=== PATIENT | male | born 1960 | race Caucasian/White ===

== ENCOUNTER 2024-03-13 12:38 | Emergency (ER) | payer OTHER, SELFPAY ==
[2024-03-13 12:46] VITALS: BP 168/103
--- NOTE | 2024-03-13 12:53 | ED.GENMED ---
ED Provider Triage
<CAMPBELL Bowens - Last Filed: 03/13/24 12:58>
-
Patient seen by provider in Triage?: Seen in Triage
Attestation: A medical screening examination has been initiated by a qualified medical provider. Based on the assessment performed at this time, it has been determined that an emergent medical condition may exist and the patient has been informed
that further medical evaluation and possible additional diagnostic testing may be needed.
HPI: 64 yr old male w/ hx of bipolar disorder has not been on meds for at least 6 mos ago. Here to get help getting a therapist/psychiatrist.
pt does not have a current therapist/psychiatrist.
pt does not have a pcp.
He does not feel suicidal homicidal but does feel that he needs to be back on medication for bipolar disorder.
Pt has no physical complaints. Pt is a diabetic but has not been taking his metformin as prescribed.
GENERAL: Alert , in no apparent distress
EYE: No visual abnormalities.
NECK: Trachea midline
ENT: No visible abnormalities.
LUNGS: No acute respiratory distress
NEUROLOGICAL: Alert and oriented
SKIN: Skin intact. No visible changes.
MUSCULOSKELETAL: Moving extremities normally
PSYCH: Normal and appropriate interaction.
This is a medical evaluation conducted in person to initiate diagnostic evaluation and provide initial therapeutics. Please see further documentation by the treating clinician.
History of Present Illness
<CAMPBELL Bowens - Last Filed: 03/13/24 12:58>
General
Chief Complaint: Crisis Evaluation
Time Seen by Provider: 03/13/24 13:42
<Guillermo Cantor DO - Last Filed: 03/13/24 14:13>
General
Source: patient
Exam Limitations: none
Nursing documentation reviewed up to this point in time: agreed with
History of Present Illness
History of Present Illness:
64 yo male presents Emergency Department due to being unable to get an appointment to refill his medications. He was taking Wellbutrin and Abilify. He states his blood sugar has been elevated as well. He has not been taking his metformin as
prescribed. He denies any chest pain or shortness of breath. He denies SI or HI.
Past History
<RADHA BowensNP - Last Filed: 03/13/24 12:58>
Past History
ED Past Medical History: None
ED Past Surgical History: None
Social History
Tobacco: Non-smoker
<Guillermo Cantor, DO - Last Filed: 03/13/24 14:13>
Past History
ED Past Medical History: HTN, NIDDM and Psychiatric (Bipolar)
Social History
Alcohol: Former
Drug: None
Review of Systems
<Guillermo Cantor, DO - Last Filed: 03/13/24 14:13>
Review of Systems
Allergies reviewed?: Yes
All Other Systems: Not applicable
Constitutional: Reports no symptoms
EENT: Reports no symptoms
Respiratory: Reports no symptoms
Cardiac: Reports no symptoms
ABD/GI: Reports no symptoms
: Reports no symptoms
Musculoskeletal: Reports no symptoms
Skin: Reports no symptoms
Neurological: Reports no symptoms
Endocrine: Reports no symptoms
Hematologic/Lymphatic: Reports no symptoms
Psychiatric: Reports anxiety
Phy Exam
<Guillermo Cantor, DO - Last Filed: 03/13/24 14:13>
Physical Exam
Physical Exam:
Physical Exam
General: no apparent distress, not acutely ill
Neck: supple. no meningeal signs. normal posterior pharynx
Heart: s1/s2 regular rate and rhythm, no murmur. equal radial
pulses.
HEENT: Pupils equal round reactive to light, EOMI
Lungs: no acute respiratory distress. clear bilaterally
Abdomen: normal bowel sounds. not tender. no CVAT
Neuro: alert and oriented. no focal neurological deficits cranial nerves II through XII intact
Skin: no rash
Psychiatric: well kept. interactive and cooperative
Extremities: no edema. no calf tenderness. negative homans. good distal pulses
Course
<CAMPBELL Bowens - Last Filed: 03/13/24 12:58>
Orders/Labs/Results
Orders:
Orders
03/13/24 13:06
Complete Blood Count/With Diff Urgent
Comprehensive Metabolic Panel Urgent
Abnormal Lab Results
03/13/24 03/13/24
12:59 13:06
Abs Immat Gran (auto) 0.1 H 10^3/uL
(0-0.05)
Absolute Monos (auto) 0.9 H 10^3/uL
(0.1-0.6)
Immature Gran % 0.6 H %
(0-0.5)
Lymphocytes % 18.0 L %
(20.5-51.1)
Monocytes % 9.4 H %
(1.7-9.3)
Chloride 97 L mmol/L
(98-107)
Glucose 358 H mg/dl
(70-99)
POC Glucose 338 H mg/dl
(70-99)
03/13/24 13:06
03/13/24 13:06
Vital Signs
Initial and Last Documented VS:
Initial Vital Signs
Temp Pulse Resp BP Pulse Ox
98.4 F 122 18 168/103 97
03/13/24 12:46 03/13/24 12:46 03/13/24 12:46 03/13/24 12:46 03/13/24 12:46
Last Documented Vital Signs
Temp Pulse Resp BP Pulse Ox
98.4 F 122 18 168/103 97
03/13/24 12:46 03/13/24 12:46 03/13/24 12:46 03/13/24 12:46 03/13/24 12:46
<Guillremo Cantor, DO - Last Filed: 03/13/24 14:13>
Orders/Labs/Results
Orders:
Orders
03/13/24 13:06
Complete Blood Count/With Diff Urgent
Comprehensive Metabolic Panel Urgent
Abnormal Lab Results
03/13/24 03/13/24
12:59 13:06
Abs Immat Gran (auto) 0.1 H 10^3/uL
(0-0.05)
Absolute Monos (auto) 0.9 H 10^3/uL
(0.1-0.6)
Immature Gran % 0.6 H %
(0-0.5)
Lymphocytes % 18.0 L %
(20.5-51.1)
Monocytes % 9.4 H %
(1.7-9.3)
Chloride 97 L mmol/L
(98-107)
Glucose 358 H mg/dl
(70-99)
POC Glucose 338 H mg/dl
(70-99)
03/13/24 13:06
03/13/24 13:06
Vital Signs
Initial and Last Documented VS:
Initial Vital Signs
Temp Pulse Resp BP Pulse Ox
98.4 F 122 18 168/103 97
03/13/24 12:46 03/13/24 12:46 03/13/24 12:46 03/13/24 12:46 03/13/24 12:46
Last Documented Vital Signs
Temp Pulse Resp BP Pulse Ox
98.4 F 122 18 168/103 97
03/13/24 12:46 03/13/24 12:46 03/13/24 12:46 03/13/24 12:46 03/13/24 12:46
<Guillermo Cantor - Last Filed: 03/13/24 14:13>
MDM/Problems Addressed
Differential Diagnosis Includes:
hyperglycemia
MDM/Problems Addressed:
64 yo male with hyperglycemia, DM, bipolar disorder.
Chronic conditions affecting care: DM, HTN and Psychiatric illness
Acute Exacerbation and/or Progression of Chronic Illness: DM and Psychiatric illness
<Guillermo Cantor DO - Last Filed: 03/13/24 14:13>
*Pulse Oximetry
Patient hypoxic: no
*Critical Care Note
Total Time (30-74mins, 75-104mins- exclusive of procedures): Not Applicable
<Guillermo Cantor, - Last Filed: 03/13/24 14:13>
Patient Management
Social determinants of health affecting care: Living situation
Discussion with other providers: Other (crisis to see patient and give resources)
Escalation/DeEscalation of care consider admission/obs:
admit not indicated
ED Attending Note
<CAMPBELL Bowens - Last Filed: 03/13/24 12:58>
-
Portions of this chart may have been created with voice recognition software.� Occasional wrong word or��sound alike� substitutions may have occurred due to the inherent limitations of voice recognition software.
Discharge Plan
Departure
Patient Disposition: Home (Routine Discharge)
Date of Disposition: 03/13/24
Time of Disposition: 14:07
Patient Status:: Crisis
Patient with high blood pressure during this ER visit?: Yes
Condition: Good
Discharge Problem:
Hyperglycemia due to diabetes mellitus
Instructions: Bipolar disorder - Discharge instructions, Type 2 diabetes - Discharge instructions
Prescriptions:
New
aripiprazole [Abilify] 5 mg tablet
5 mg PO DAILY Qty: 30 0RF
bupropion HCl 100 mg tablet
100 mg PO DAILY Qty: 30 0RF
Interventions
Interventions:
*Risk Screen - Suicide Last Done: 03/13/24 12:50
*General Assessment Last Done: 03/13/24 12:46
*Neglect/Abuse Screening Last Done: 03/13/24 12:46
*ED COVID-19 Vaccine History Last Done: 03/13/24 12:50
Discharge Date and Time
Print Language: SAMI
[2024-03-13 13:01] LABS: Glucose - Point of Care 338 mg/dl (70-99)
[2024-03-13 13:17] LABS: % Basophils 0.9 % (0-2); % Eosinophils 1.7 % (0-6); % Immature Granulocytes 0.6 % (0-0.5); % Monocytes 9.4 % (1.7-9.3); % Neutrophils 69.4 % (42.2-75.2); Absolute Basophils 0.1 10^3/uL (0-0.2); Absolute Eosinophils 0.2 10^3/uL (0-0.7); Absolute Immature Granulocytes 0.1 10^3/uL (0-0.05); Absolute Lymphocytes 1.6 10^3/uL (1.2-3.4); Absolute Monocytes 0.9 10^3/uL (0.1-0.6); Absolute Neutrophils 6.3 10^3/uL (1.4-6.5); Hemoglobin 15.7 g/dL (13.0-18.0); Mean Corp Hgb Conc. 34.9 g/dL (33.0-37.0); Mean Corpuscular Hgb 28.6 pg (27.0-31.0); Nucleated Red Blood Cells % 0 % (-); Platelet Count 322 10^3/uL (130-400); Red Blood Cell Count 5.49 10^6/uL (4.70-6.10); Red Cell Dist. Width 13.4 % (11.5-14.5); White Blood Cell Count 9.1 10^3/uL (4.8-10.8)
[2024-03-13 13:37] LABS: ALT (SGPT) 40 U/L (0-50); AST (SGOT) 32 U/L (17-59); Albumin 4.8 g/dl (3.5-5.0); Alkaline Phosphatase 87 U/L (38-126); Blood Urea Nitrogen 15 mg/dl (9-20); Calcium 9.8 mg/dl (8.4-10.2); Carbon Dioxide 26 mmol/L (22-30); Chloride 97 mmol/L (98-107); Glucose 358 mg/dl (70-99); Potassium 4.5 mmol/L (3.5-5.1); Sodium 135 mmol/L (135-145); Total Bilirubin 0.9 mg/dl (0.2-1.3); Total Protein 7.4 g/dl (6.3-8.2); eGFR > 60.00
== END 2024-03-13 14:48 | disposition home or self-care (01) ==
LOC: EMR 12:38
PROVIDERS: Emergency Medicine; EMERGENCY PHYSICIAN Emergency Medicine
DX: E11.65 Type 2 diabetes mellitus with hyperglycemia (principal); F31.9 Bipolar disorder, unspecified; Z76.0 Encounter for issue of repeat prescription; I10 Essential (primary) hypertension
CPT/HCPCS: 99283; 80053; 82962; 85025